=== PATIENT | female | born 1945 | race Two or more races ===

== ENCOUNTER → 2021-10-07 15:23 | Outpatient (BNVA) | payer OTHER, SELFPAY | PROVIDERS: Visit Provider Nurse Practitioner Family | DX: R41.3 Other amnesia (principal); Z86.73 Personal history of transient ischemic attack (TIA), and cerebral infarction without residual deficits; Z79.82 Long term (current) use of aspirin; Z79.899 Other long term (current) drug therapy | CPT/HCPCS: Q3014 ==

== ENCOUNTER → 2021-12-26 08:07 | Outpatient (BNVA) | payer OTHER, SELFPAY | PROVIDERS: PCP Internal Medicine; Visit Provider Nurse Practitioner Family | DX: R41.3 Other amnesia (principal); Z86.73 Personal history of transient ischemic attack (TIA), and cerebral infarction without residual deficits | CPT/HCPCS: 99212 ==

== ENCOUNTER 2023-11-06 11:32 | Outpatient (AMB) | payer OTHER, SELFPAY ==
--- NOTE | 2023-11-06 11:53 | A.OFFVIS_ITS ---
Intake Vital Signs 11/06/23 11:55 Height 5 ft 1 in Weight 122 lb 2 oz BMI 23.1 BP 110/62 Blood Pressure Location Rt brachial Position Sitting Pulse 73 Pulse Source Pulse Oximeter Pulse Oximetry (%) 96 Oxygen Delivery Method Room Air Intake Visit Reasons: Follow up-LVM Intake Note: Patient presents for follow up . Allergies No Known Allergies Allergy (Verified 11/06/23 11:55) Medication List - Last Reconciled 11/06/23 by BREE Coleman alendronate 70 mg PO QWEEK amlodipine 10 mg PO DAILY aspirin (Adult Low Dose Aspirin) 81 mg PO DAILY darunavir (Prezista) 800 mg PO DAILY diclofenac sodium 1% 2 grams topical QID emtricitabine-tenofovir alafen 200-25 mg (Descovy) 1 tab PO DAILY glipizide ER 2.5 mg PO DAILY memantine 21 mg PO DAILY 30 days metoprolol succinate ER 25 mg PO DAILY mirabegron ER (Myrbetriq) 50 mg PO DAILY ritonavir 100 mg PO DAILY trazodone 50 mg PO DAILY HPI HPI Comments History of Present Illness Details 78-yr-old female presents for f/u visit, accompanied by her dtr. Pt denies any significant interval medical changes. Pt has been stable overall. 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 Pt continues to need help w/ ADLs. She still attends a day program, which she likes. She is eating and drinking well. No unsafe behaviors. No falls. Pt's dtr notes that her PCP's office did discuss completing a [facility] form w/ the pt. Dtr states that PCP asked her to complete form w/ neuro. Pt and dtr (HCP) states she requests DNR status, no enteral feedings, no incubation. And would agree to hospitalization, dialysis, IVF, CPAP/BiPAP. [facility] Surgical History No pertinent past surgical history Social History Alcohol intake: never Patient Tobacco Use Status: Never used Tobacco Physical Exam Vital Signs: Last Vital Signs Pulse 73 11/06/23 11:55 BP 110/62 11/06/23 11:55 Pulse Ox 96 11/06/23 11:55 Oxygen Delivery Method Room Air 11/06/23 11:55 BMI result Body Mass Index 23.1 Const General: cooperative and no acute distress Resp Effort & Inspection: normal respiratory effort and able to speak in complete sentences Neuro Other: Alert & oriented to person and place. Pt responding appropriately to simple questions as well as advanced directives questions. Steady gait w/ cane. Cranial nerves: Yes CN's II-XII intact bilaterally Psych Appearance: grossly normal Speech and movement: Normal speech and movement present Affect: normal affect Attitude: cooperative Assessment & Plan Assessment & Plan (1) Memory difficulties: Comment: ? 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 Continue ASA, amlodipine, metoprolol. Reviewed pt's advanced directives wishes. Pt/dtr has form at home, dtr will bring in form so we can complete it. f/u in 6 months or sooner prn. Medications: New memantine 21 mg PO DAILY 30 days 30 ea 6RF Discontinued memantine Discontinued Reason: Doctor's Order 14 mg PO DAILY 30 days 30 ea 3RF Coding Level of Care Code Est Pt Level 4 (43548) Diagnoses Memory difficulties R41.3 History of CVA (cerebrovascular accident) Z86.73
[2023-11-06 11:55] VITALS: BP 110/62; PULSE 73; O2SAT 96; BMI 23.1
== END 2023-11-06 12:37 | disposition home or self-care (01) ==
PROVIDERS: PCP Internal Medicine; Visit Provider Nurse Practitioner Family
DX: R41.3 Other amnesia (principal); Z86.73 Personal history of transient ischemic attack (TIA), and cerebral infarction without residual deficits
CPT/HCPCS: 99214

== ENCOUNTER → 2023-11-06 11:32 | Outpatient (BNVA) | payer OTHER, SELFPAY | PROVIDERS: PCP Internal Medicine; Visit Provider Nurse Practitioner Family | DX: R41.3 Other amnesia (principal); Z86.73 Personal history of transient ischemic attack (TIA), and cerebral infarction without residual deficits | CPT/HCPCS: 99212 ==

== ENCOUNTER 2024-12-16 08:15 | Outpatient (AMB) | payer OTHER, SELFPAY ==
--- NOTE | 2024-12-16 08:39 | A.OFFVIS_ITS ---
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 Required: No Accompanied by: Daughter Allergies No Known Allergies Allergy (Verified 12/16/24 08:45) Medication List - Last Reconciled 12/16/24 by BREE Coleman alendronate 70 mg PO QWEEK amlodipine 10 mg PO DAILY aspirin (Adult Low Dose Aspirin) 81 mg PO DAILY darunavir (Prezista) 800 mg PO DAILY diclofenac sodium 1% 2 grams topical QID emtricitabine-tenofovir alafen 200-25 mg (Descovy) 1 tab PO DAILY glipizide ER 2.5 mg PO DAILY memantine 28 mg PO DAILY 30 days metoprolol succinate ER 25 mg PO DAILY mirabegron ER (Myrbetriq) 50 mg PO DAILY ritonavir 100 mg PO DAILY HPI Comments Details: History of Present Illness The patient is a 79-year-old female presenting with memory difficulties for dementia management. Currently on memantine, increased to 28 mg daily. No improvement in memory noted, but no worsening. No recent falls reported, despite a knee twist on a bus seven months ago which has not resulted in residual knee pain/issues. Denies issues with eating and drinking. Reports sleep mildly disrupted to use the bathroom however she can easily fall back asleep- and no longer requires using trazodone at night.. Has her own apartment, was spent a lot of time at her daughter's house. She continues to attend a day program, where she does the exercise classes and is socially active with cognitive activities like karaoke. She also has a opinion on the weekend, and they play games such as spelling words with scrambled tiles or playing dominoes. She has a history of cerebrovascular accident, managed with aspirin, amlodipine, and metoprolol. Blood pressure stable Review of Systems - General: Denies recent falls or accidents except for knee twist incident seven months ago. - Neurological: Memory remains the same.. - Gastrointestinal: Reports eating well. - Genitourinary: Reports drinking adequately. - Sleep: Mild sleep disruption. Results Pulled from [facility] Discussion Notes Discussed with the patient the current management of her dementia and memory difficulties under the treatment with memantine, which has been increased to 28 mg daily. Although there is no noted improvement in memory, continuation of the regimen was agreed upon as her symptoms remain stable. Explored the possibilities regarding newer medications which potentially slow the progression of dementia but determined patient may be beyond the stage for these interventions. Anxiety or concerns regarding fall risks were addressed, concluding that previous fall incident was isolated. Reinforced the importance of social engagement and cognitive activities for maintaining memory function. Scheduled follow-up for one year, with interim monitoring if new concerns arise. Plan Continue memantine 28 mg daily for dementia, no changes in memory yet. Maintain current aspirin and antihypertensive therapies due to stable blood pressure. Encourage social and cognitive activities. Follow up in one year, sooner if new symptoms arise or memory issue worsens. Patient was informed and verbally consented to the use of an ambient scribe for clinic note documentation during this visit. [facility] Surgical History No pertinent past surgical history Social History Alcohol intake: never Patient Tobacco Use Status: Never used Tobacco Physical Exam Vital Signs: Last Vital Signs BP 130/60 12/16/24 08:40 Const General: cooperative and no acute distress Resp Effort & Inspection: normal respiratory effort and able to speak in complete sentences Neuro Other: Alert & oriented to person and place. Responds appropriately with simple answers. Today patient was able to accurately state that we are in a doctor's office, in [place], in [place], and on the 1st floor. She was unable to state the country, however this is commonly seen in patients from [place]. She initially stated today was , however corrected herself to Thursday which is accurate. She accurately stated that it was spring. She she in actually stated the month was December, and could not state the date or the year. She was able to state that the president is currently Getachew Mccann. Steady gait w/ cane. 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 - Maintain your current cardiovascular, blood pressure and diabetic medication regimen. - Check follow-up labs, lipid levels, HgA1c as ordered by PCP. - Engage in social activities and cognitive exercises regularly. - Monitor for any new memory issues or concerns and report if they occur. - Return for regular follow-up in one year or sooner if needed. Medications: Refilled 2 memantine 28 mg PO DAILY 30 days 30 ea 6RF Coding Level of Care Code Est Pt Level 4 (39657) Diagnoses Dementia F03.90 History of CVA (cerebrovascular accident) Z86.73
[2024-12-16 08:40] VITALS: BP 130/60
== END 2024-12-16 09:07 | disposition home or self-care (01) ==
LOC: HO.HSMS 08:15
PROVIDERS: PCP Internal Medicine; Visit Provider Nurse Practitioner Family
DX: F03.90 Unspecified dementia, unspecified severity, without behavioral disturbance, psychotic disturbance, mood disturbance, and anxiety (principal); Z86.73 Personal history of transient ischemic attack (TIA), and cerebral infarction without residual deficits
CPT/HCPCS: 99214

== ENCOUNTER → 2024-12-16 08:15 | Outpatient (BNVA) | payer OTHER, SELFPAY | PROVIDERS: PCP Internal Medicine; Visit Provider Nurse Practitioner Family | DX: F03.90 Unspecified dementia, unspecified severity, without behavioral disturbance, psychotic disturbance, mood disturbance, and anxiety (principal); Z86.73 Personal history of transient ischemic attack (TIA), and cerebral infarction without residual deficits | CPT/HCPCS: 99212 ==